=== PATIENT | male | born 1930 | race Hispanic/Latino ===

== ENCOUNTER 2018-05-13 15:21 | Observation (INO) | payer MEDICARE, OTHER ==
[2018-05-13 15:57] VITALS: BMI 23.0
--- NOTE | 2018-05-13 16:09 | ED PDOC ---
Arrival/HPI - General Time Seen by Provider: 05/13/18 15:28 Historian: Patient - History of Present Illness Narrative History of Present Illness (Text): 05/13/18 16:04 88-year-old male presents today sent in by Dr. Teryr for evaluation for "low blood count". [place]. Patient states apparently the [facility] has been trying to call him since yesterday to tell him about his blood test. Apparently the [facility] called Dr. Parada and Dr. Parada was able to get in contact with the patient and advised him to come to the emergency room for admission. Patient denies fevers or chills. Denies chest pain or shortness of breath. Denies dizziness or weakness. Denies nausea vomiting diarrhea constipation. He denies hematochezia or hematemesis or hematuria. Patient denies abdominal pain. No other complaints Past Medical History - Provider Review Nursing Documentation Reviewed: Yes - Travel History Have you recently traveled outside [place] w/in the past 3 mons?: No - Hematological/Oncological Hx Blood Transfusions: No - Musculoskeletal/Rheumatological Hx Musculoskeletal Disorders: No - Psychiatric Hx Physical Abuse: No Hx Substance Use: No - Anesthesia Hx Anesthesia Reactions: No Hx Malignant Hyperthermia: No - Suicidal Assessment Feels Threatened In Home Enviroment: No Family/Social History - Physician Review Nursing Documentation Reviewed: Yes Family/Social History: Unknown Family HX Smoking Status: Unknown If Ever Smoked Hx Alcohol Use: (OCCASIONAL BEER) Hx Substance Use: No Allergies/Home Meds Allergies/Adverse Reactions: Allergies No Known Allergies Allergy (Verified 12/30/12 11:06) Home Medications: Home Meds Medication Instructions Recorded Confirmed Cholecalciterol 2,000 units PO DAILY 05/13/18 05/13/18 Meclizine [Antivert] 25 mg PO 05/13/18 Mesalamine [Apriso] 375 mg PO DAILY 05/13/18 05/13/18 MetFORMIN [glucOPHAGE] 500 mg PO DAILY 05/13/18 05/13/18 Simvastatin [Zocor] 20 mg PO DAILY 05/13/18 05/13/18 Review of Systems - Review of Systems Constitutional: absent: Fatigue, Fevers Respiratory: absent: SOB, Cough Cardiovascular: absent: Chest Pain, Palpitations Gastrointestinal: absent: Abdominal Pain, Nausea, Vomiting Genitourinary Male: absent: Dysuria Musculoskeletal: absent: Arthralgias, Back Pain, Neck Pain Skin: absent: Rash, Pruritis Neurological: absent: Headache, Dizziness Psychiatric: absent: Anxiety, Depression, Suicidal Ideation Physical Exam Vital Signs Reviewed: Yes Vital Signs Temp Pulse Resp BP Pulse Ox 05/13/18 22:14 98.1 F 65 18 159/79 H 100 05/13/18 20:30 97.9 F 62 19 153/80 H 05/13/18 20:21 98.2 F 70 19 155/77 H 100 05/13/18 19:45 98.1 F 75 18 165/98 H 05/13/18 19:29 98 F 78 18 159/68 H 05/13/18 15:48 97.6 F 83 18 141/73 98 Temperature: Afebrile Blood Pressure: Normal Pulse: Regular Respiratory Rate: Normal Appearance: Positive for: Well-Appearing, Non-Toxic, Comfortable Pain Distress: None Mental Status: Positive for: Alert and Oriented X 3 - Systems Exam Head: Present: Atraumatic Pupils: Present: PERRL Extroacular Muscles: Present: EOMI Mouth: Present: Moist Mucous Membranes Neck: Present: Normal Range of Motion Respiratory/Chest: Present: Clear to Auscultation, Good Air Exchange. No: Respiratory Distress, Accessory Muscle Use Cardiovascular: Present: Regular Rate and Rhythm, Normal S1, S2. No: Murmurs Abdomen: No: Tenderness, Distention, Rebound, Guarding Rectal: Present: Occult Blood. No: Rectal Tenderness, Gross Blood, Melena, Hemorrhoids, Fissures, Nodule/Mass/Lesions Back: Present: Normal Inspection Upper Extremity: Present: Normal ROM Lower Extremity: Present: Normal ROM Neurological: Present: GCS=15, Speech Normal Skin: Present: Warm, Dry, Normal Color. No: Rashes Psychiatric: Present: Alert, Oriented x 3 Medical Decision Making ED Course and Treatment: 05/13/18 16:06 88yr old male presents today sent in by dr. Parada for low blood count. pt denies any complaints cbc hcg; 7.1 cmp: bun; 30 cr; 1.9 glucose; 140 INR: wnl trop wnl ekg; normal sinus rhythm at 78 bpm normal axis normal intervals no ST elevations cxr; wnl 05/13/18 17:46 pt is non toxic well appearing; denies any complaints. pt found to have HGB of 7.1; with brown heme positive stools. consent for blood transfusion obtained. case discussed with dr. reeves; wants only 1 unit PRBCS, consult dr. parada. impression; GI bleed, anemia admit to tele - Lab Interpretations Lab Results: 05/13/18 16:50 05/13/18 16:50 Lab Results 05/13/18 17:18: Blood Type O POSITIVE, Antibody Screen Negative, Crossmatch See Detail, BBK History Checked No verified bt 05/13/18 16:50: Urine Color Yellow, Urine Appearance Clear, Urine pH 6.0, Ur Specific [place] 1.020, Urine Protein Trace H, Urine Glucose (UA) Negative, Urine Ketones Negative, Urine Blood Negative, Urine Nitrate Negative, Urine Bilirubin Negative, Urine Urobilinogen 0.2, Ur Leukocyte Esterase Negative, Urine RBC 0 - 2, Urine WBC 1 - 3, Ur Epithelial Cells None, Urine Bacteria Few 05/13/18 16:50: PT 12.0, INR 1.05, APTT 30.0 05/13/18 16:50: WBC 6.4, RBC 2.83 L, Hgb 7.1 L, Hct 23.3 L, MCV 82.3 D, MCH 25.1, MCHC 30.5 L, RDW 16.1 H, Plt Count 193, MPV 8.8, Gran % 84.1 H, Lymph % ( Auto) 5.7 L, [place] % (Auto) 7.2 H, Eos % (Auto) 2.8, Baso % (Auto) 0.2, Gran # 5.34, Lymph # (Auto) 0.4 L, [place] # (Auto) 0.5, Eos # (Auto) 0.2, Baso # (Auto) 0.01 05/13/18 16:50: Sodium 140, Potassium 4.2, Chloride 107, Carbon Dioxide 25, Anion Gap 12, BUN 30 H, Creatinine 1.9 H, Est GFR ( Amer) 41, Est GFR ( Non-Af Amer) 34, Random Glucose 140 H, Calcium 8.3 L, Total Bilirubin 0.2, AST 20, ALT 20, Alkaline Phosphatase 176 H, Lactate Dehydrogenase 403, Total Creatine Kinase 76, Troponin I 0.01, Total Protein 6.8, Albumin 3.8, Globulin 3.0, Albumin/Globulin Ratio 1.3 - RAD Interpretation Radiology Orders: 05/13/18 15:58 CHEST PORTABLE [RAD] Stat - Medication Orders Current Medication Orders: Discontinued Medications Pantoprazole Sodium (Protonix Inj) 40 mg IVP STAT STA Stop: 05/13/18 17:38 Last Admin: 05/13/18 17:48 Dose: 40 mg IVP Administration Document 05/13/18 17:48 MAURICE (Rec: 05/13/18 17:48 MAURICE [id number]) Charges for Administration # of IVP Administrations 1 Disposition/Present on Arrival - Present on Arrival Any Indicators Present on Arrival: No History of DVT/PE: No History of Uncontrolled Diabetes: No Urinary Catheter: No History of Decub. Ulcer: No - Disposition Have Diagnosis and Disposition been Completed?: Yes Diagnosis: Anemia, GI bleed Disposition: HOSPITALIZED Disposition Time: 17:40 Patient Plan: Observation Patient Problems: Current Active Problems Problem Status Onset Anemia Acute GI bleed Acute Condition: FAIR
--- NOTE | 2018-05-13 16:54 | RAD ---
Date of service: 05/13/2018 HISTORY: anemia COMPARISON: No prior. FINDINGS: LUNGS: No active pulmonary disease. PLEURA: No significant pleural effusion identified, no pneumothorax apparent. CARDIOVASCULAR: Normal. OSSEOUS STRUCTURES: No significant abnormalities. VISUALIZED UPPER ABDOMEN: Normal. OTHER FINDINGS: None. IMPRESSION: No active disease.
[2018-05-13 17:16] LABS: BASO # 0.01 K/mm3 (0.0-2.0); BASO % 0.2 % (0.0-3.0); EOS # 0.2 (0.0-0.7); EOS % 2.8 % (1.5-5.0); GRAN # 5.34 (1.4-6.5); GRAN % 84.1 % (50.0-68.0); HEMOGLOBIN 7.1 g/dL (14.0-18.0); LYMPH # 0.4 (1.2-3.4); LYMPH % 5.7 % (22.0-35.0); MEAN CELL VOLUME 82.3 fl (80.0-105.0); MEAN CORPUSCULAR HEMOGLOBIN 25.1 pg (25.0-35.0); MEAN CORPUSCULAR HGB CONC 30.5 g/dl (31.0-37.0); MEAN PLATELET VOLUME 8.8 fl (7.0-11.0); MONO # 0.5 (0.1-0.6); MONO % 7.2 % (1.0-6.0); RBC 2.83 10^6/uL (3.5-6.1); RED CELL DISTRIBUTION WIDTH 16.1 % (11.5-14.5); WHITE BLOOD COUNT 6.4 10^3/ul (4.5-11.0)
[2018-05-13 17:19] LABS: ALB/GLOB RATIO 1.3 (1.1-1.8); ALBUMIN 3.8 g/dL (3.0-4.8); CALCIUM 8.3 mg/dL (8.4-10.5)
[2018-05-13 17:20] LABS: INR 1.05
[2018-05-13 17:22] LABS: URINE BILIRUBIN NEGATIVE (NEGATIVE); URINE BLOOD NEGATIVE (NEGATIVE); URINE GLUCOSE (UA) NEGATIVE (NEGATIVE); URINE LEUKOCYTE ESTERASE NEGATIVE Leu/uL (NEGATIVE); URINE PROTEIN TRACE mg/dL (<30 mg/dL); URINE UROBILINOGEN 0.2 E.U./dL (<1 E.U./dL)
[2018-05-13 17:24] LABS: URINE APPEARANCE CLEAR (CLEAR); URINE COLOR YELLOW (YELLOW)
[2018-05-13 17:30] LABS: TROPONIN I 0.01 ng/mL; URINE BACTERIA FEW (NEG); URINE RBC 0 - 2 /hpf (0-2)
[2018-05-14 08:35] LABS: HEMOGLOBIN 8.5 g/dL (14.0-18.0); MEAN CELL VOLUME 81.9 fl (80.0-105.0); MEAN CORPUSCULAR HEMOGLOBIN 25.2 pg (25.0-35.0); MEAN CORPUSCULAR HGB CONC 30.8 g/dl (31.0-37.0); MEAN PLATELET VOLUME 8.2 fl (7.0-11.0); RBC 3.37 10^6/uL (3.5-6.1); RED CELL DISTRIBUTION WIDTH 15.7 % (11.5-14.5); WHITE BLOOD COUNT 4.6 10^3/ul (4.5-11.0)
[2018-05-14] MEDS ORDERED: Etomidate 20 mg/10ml Inj IV ONE (08:54)
[2018-05-14] MEDS ORDERED: Propofol 10 mg/ml Inj (20 ML) ONE (08:54)
[2018-05-14 09:24] VITALS: O2SAT 97
[2018-05-14] MEDS ORDERED: Barium Sulfate Susp 2.1% w/v, 2.0% w/w 450 mL Bottle PO ONE (09:38)
[2018-05-14] MEDS: Sodium Chloride 0.9% 1,000 ML IV SCH (10:21)
--- NOTE | 2018-05-14 13:07 | CT ---
Date of service: 05/14/2018 PROCEDURE: CT Abdomen and Pelvis without intravenous contrast HISTORY: anemia COMPARISON: None. TECHNIQUE: Without contrast. Contrast dose: Radiation dose: Total exam DLP = 450 mGy-cm. This CT exam was performed using one or more of the following dose reduction techniques: Automated exposure control, adjustment of the mA and/or kV according to patient size, and/or use of iterative reconstruction technique. FINDINGS: LOWER THORAX: Unremarkable. LIVER: Unremarkable. No gross lesion or ductal dilatation. GALLBLADDER AND BILE DUCTS: Unremarkable. PANCREAS: Unremarkable. No gross lesion or ductal dilatation. SPLEEN: Unremarkable. ADRENALS: Unremarkable. No mass. KIDNEYS AND URETERS: Unremarkable. No hydronephrosis. No solid mass. VASCULATURE: There is an infrarenal abdominal aortic aneurysm measuring 6.5 cm in diameter. This extends to the bifurcation. BOWEL: There is mild mural thickening in the descending and sigmoid colon, possible colitis. There is also diverticulosis in the sigmoid colon APPENDIX: Unremarkable. Normal appendix. PERITONEUM: Unremarkable. No free fluid. No free air. LYMPH NODES: Unremarkable. No enlarged lymph nodes. BLADDER: Unremarkable. REPRODUCTIVE: There is mild enlargement of the prostate which measures 48 x 57 mm. BONES: Multilevel disc degeneration OTHER FINDINGS: None. IMPRESSION: Mild mural thickening in the descending and sigmoid colon, possible colitis 6.5 cm infrarenal abdominal aortic aneurysm
--- NOTE | 2018-05-14 17:42 | CARD ---
APPROVED REPORT Date of service: 05/13/2018 EKG Measurement Heart [id number] <Conclusion> Normal sinus rhythm Normal ECG
--- NOTE | 2018-05-14 18:04 | CON ---
DATE: 05/14/2018 GASTROENTEROLOGY CONSULTATION REQUESTING PHYSICIAN: Amari Allison MD REASON FOR CONSULTATION: I have been asked to see this 88-year-old male with a history of Crohn's colitis which has been quiescent for many years without any history of diarrhea or rectal bleeding recently, who has had a slowly decreasing blood count over the last 6 months. The patient had a CBC several months ago which revealed a hemoglobin of 8.8. This was down over 3.5 g over his baseline which is in the 12 g range over a year ago. At that time, he was offered upper endoscopy and he refusing that. He was 88 years old and he did not want to have the endoscopy done due to no symptoms of bleeding at that time. The patient had blood work 2 days ago at the [facility] and was found to be more anemic with a hemoglobin of 7.4 g. I called the patient and advised him to come to the hospital for blood transfusions and workup. Again, he denies any rectal bleeding or diarrhea. PAST MEDICAL HISTORY: Notable for diabetes mellitus, hypertension, vertigo, and Crohn's colitis. SOCIAL HISTORY: The patient is a former cigarette smoker, having quit many years ago. He consumes alcohol on a social basis. FAMILY HISTORY: Noncontributory. REVIEW OF SYSTEMS: A 14-point review of systems is notable for generalized weakness. He denies chest pain, palpitations or shortness of breath. MEDICATIONS AT HOME: Include Apriso 375 mg three times a day, metformin 500 mg daily, Zocor, meclizine and colecalciferol. PHYSICAL EXAMINATION: GENERAL: Elderly male in no distress. VITAL SIGNS: Reveal temperature of 98, blood pressure 130/73, heart rate 65. HEENT: Reveal sclerae to be white. Conjunctivae pink. NECK: Supple. CHEST: Lungs are clear. HEART: Reveals regular rate and rhythm. ABDOMEN: Soft, nontender. EXTREMITIES: Show no edema. LABORATORY DATA: Reveal hemoglobin of 7.1, MCV of 82.3, platelet count 193,000, white blood cell count 6.4. Coags are normal. Chemistries reveal BUN 30, creatinine 1.9, blood sugar of 140. AST, ALT are normal. Alkaline phosphatase is 176. IMPRESSION: An 88-year-old male with quiescent Crohn's colitis, admitted to the hospital with anemia. The patient's colitis is quiescent without any history of diarrhea or rectal bleeding. His blood count has been noted to be slowly decreasing over several months. He has refused upper endoscopy in the past. He did have a colonoscopy several years ago which showed mildly active sigmoid colitis. RECOMMENDATIONS: 1. We will transfuse packed red blood cells to hematocrit of 30%. 2. We will schedule the patient for an upper endoscopy for this morning. Gil Chow MD
--- NOTE | 2018-05-14 22:05 | HP ---
HISTORY OF PRESENT ILLNESS: The patient is an 88-year-old male who was sent in to the emergency room by Dr. Chow for evaluation of a low blood count. [facility]. [facility]. Dr. Chow was able to keep in touch with the patient and he presented to the emergency room. The patient denies any nausea, vomiting, diarrhea, constipation, hematemesis, hematuria. He has no complaints whatsoever. FAMILY HISTORY: Noncontributory. ALLERGIES: NONE. PAST MEDICAL HISTORY: He has a past medical history of Crohn's disease which apparently has been stable. PHYSICAL EXAMINATION: VITAL SIGNS: Temperature of 98, pulse rate of 65, blood pressure of 140/70, respiratory rate of 18 with an O2 saturation of 97% on nasal cannula. HEENT: Unremarkable. NECK: Supple. There is a full range of motion. LUNGS: Clear to auscultation and percussion bilaterally. HEART: Regular rate and rhythm ABDOMEN: Benign. There is no pain on palpation. There is no organomegaly. EXTREMITIES: Show no deformities or edema. NEUROLOGICAL: Show no focal deficits. LABORATORY DATA: CBC shows a hemoglobin of 8.5 with a hematocrit of 27.6. Chemistry: BUN of 30, creatinine of 1.9, random glucose of 140. Of note this is a nonfasting. The patient was scoped this morning. No signs of bleeding were found. Patient will be retransfused a unit of blood and we will follow his CBCs. ADMISSION DIAGNOSES: 1. Anemia, iron deficient. 2. Crohn's disease. Lincoln Allison MD
[2018-05-15] MEDS: Sodium Chloride 0.9% 1,000 ML IV SCH (00:44)
[2018-05-15 00:49] VITALS: RESP 20
[2018-05-15 06:10] VITALS: BP 128/75; PULSE 65; TEMP 97.7
[2018-05-15 08:17] LABS: HEMOGLOBIN 9.7 g/dL (14.0-18.0); MEAN CELL VOLUME 82.8 fl (80.0-105.0); MEAN CORPUSCULAR HEMOGLOBIN 25.7 pg (25.0-35.0); MEAN PLATELET VOLUME 8.6 fl (7.0-11.0); RBC 3.78 10^6/uL (3.5-6.1); RED CELL DISTRIBUTION WIDTH 15.9 % (11.5-14.5); WHITE BLOOD COUNT 5.7 10^3/ul (4.5-11.0)
[2018-05-15 08:28] LABS: ALB/GLOB RATIO 1.2 (1.1-1.8); CALCIUM 8.3 mg/dL (8.4-10.5)
--- NOTE | 2018-05-15 09:00 | PN ---
SUBJECTIVE: The patient was seen and examined at bedside on the telemetry steiner. No acute events overnight. He remains afebrile, hemodynamically stable and is doing well s/p EGD. This morning he feels well, offers no complaints and is eager for discharge to home. OBJECTIVE: VITAL SIGNS: Temperature 97.7, pulse 65, blood pressure 128/75, respiratory rate 20, oxygen saturation 97% on room air. GENERAL: No apparent distress. HEENT: PERRL, EOMI. No scleral icterus. Mild conjunctival pallor is noted. No JVD. LUNGS: Clear to auscultation. CARDIOVASCULAR: Regular rate and rhythm. Normal S1 and S2. ABDOMEN: Normoactive bowel sounds. Soft, nontender and nondistended. EXTREMITIES: No edema. NEUROLOGIC: Awake, alert and oriented x 3. No focal motor deficits. LABORATORY DATA: Morning labs are pending. ASSESSMENT: The patient is an 88-year-old man with a past medical history of Crohn disease, hyperlipidemia and type 2 diabetes mellitus who presented for evaluation of progressively worsening anemia (based on outpatient labs) who is now s/p EGD which demonstrated nonerosive esophagitis but no evidence of active bleed. PLAN: 1. Normocytic anemia. EGD reviewed and no evidence of active bleed. The patient is s/p transfusion of 2 units of PRBCs with an appropriate response in hemoglobin. A repeat CBC is pending this morning to assess for stability of hemoglobin. 2. Crohn's disease. Input from Dr. Chow noted and greatly appreciated. The patient remains on Mesalamine. 3. Hyperlipidemia. The patient to resume Simvastatin 20 mg p.o. daily upon discharge. 4. Type 2 diabetes mellitus. The patient to resume Metformin 500 mg p.o. daily upon discharge. 5. Prophylaxis. GI prophylaxis is not indicated as the patient is eating. DVT prophylaxis is not indicated as the patient is ambulatory. CODE STATUS: Full code. Amari Allison MD MTDD
--- NOTE | 2018-05-17 14:16 | DS ---
ADMISSION DIAGNOSIS: Symptomatic iron-deficiency anemia secondary to Crohn disease. DISCHARGE DIAGNOSIS: Iron-deficiency anemia and Crohn disease. SECONDARY DIAGNOSES: Hyperlipidemia and type 2 diabetes mellitus. CONSULTATIONS: Dr. Chow (Gastroenterology) IMAGING STUDIES: 1. Chest x-ray demonstrated no acute pathology. 2. CT of the abdomen and pelvis with p.o. contrast demonstrated mild mural thickening in the descending and sigmoid colon suggestive of colitis PROCEDURES: EGD demonstrated nonerosive esophagitis and atrophic gastritis, but no evidence of active bleed. HISTORY OF PRESENT ILLNESS: The patient is an 88-year-old man with a past medical history of Crohn disease, type 2 diabetes mellitus and hyperlipidemia who was sent to ED by his typecasting machine operator (Dr. Chow) for evaluation of progressively worsening anemia as noted on outpatient labs. The patient has a history of Crohn disease and has been in remission on Mesalamine and is followed closely by Dr. Chow. Over the past several months he was noted to have a progressively worsening anemia on outpatient laboratory studies and, as such, was advised to present to the ED for blood transfusion and GI evaluation to rule out GI bleed. On arrival to the ED, he was found to be afebrile and hemodynamically stable and laboratory studies confirmed anemia with a hemoglobin of 7.1. The patient was typed and crossmatched for 2 units of PRBCs and was subsequently admitted to the telemetry steiner for continued workup of symptomatic anemia. HOSPITAL COURSE: Upon admission to the telemetry steiner, the patient was evaluated by Dr. Chow. He was scheduled for an EGD the following day. He was also transfused 2 units of PRBCs with an appropriate response in hemoglobin and no overt bleeding was noted during his hospital stay. The patient underwent successful EGD with the findings as described above and given his hemodynamic stability and no evidence of active bleed, the patient was cleared for discharge to home. CONDITION: Fair, improved. DISPOSITION: Home. DISCHARGE MEDICATIONS: Simvastatin 20 mg p.o. daily, Mesalamine 375 mg p.o. daily, Metformin 500 mg p.o. daily and meclizine 25 mg p.o. every 8 hours p.r.n. vertigo. DISCHARGE INSTRUCTIONS: The patient was advised to adhere to post EGD instructions as per Dr. Chow. He was also advised that if he has any recurrence of the symptoms or any development of severe abdominal pain, nausea, vomiting, diarrhea or blood per rectum, to present to his PMD or to the nearest ED immediately. FOLLOWUP: The patient to follow up with his PMD within one week of discharge. The patient to follow up with Dr. Chow as scheduled. Amari Allison MD MTDD
== END 2018-05-15 10:38 | disposition home or self-care (01) ==
LOC: ED 15:21 → ERH 17:53 → 2RSO 22:36
PROVIDERS: ADMIT Student in an Organized Health Care Education/Training Program; ATTEND Student in an Organized Health Care Education/Training Program
DX: D50.9 Iron deficiency anemia, unspecified (principal); K50.10 Crohn's disease of large intestine without complications; I10 Essential (primary) hypertension; E11.9 Type 2 diabetes mellitus without complications; E78.5 Hyperlipidemia, unspecified; Z79.84 Long term (current) use of oral hypoglycemic drugs; Z87.891 Personal history of nicotine dependence; K20.9 Esophagitis, unspecified; K29.40 Chronic atrophic gastritis without bleeding; B96.81 Helicobacter pylori [H. pylori] as the cause of diseases classified elsewhere; R40.2412 Glasgow coma scale score 13-15, at arrival to emergency department
CPT/HCPCS: 36415; 36430; 43239; 71045; 74176; 80053; 81001; 82550; 82948; 83615; 84484; 85025; 85027; 85610; 85730; 86850; 86900; 86920; 88305; 88312; 88342; 93005; 96374; 99285; C9113; G0378; J2001; J2704; J7030; J7040; P9016

== ENCOUNTER 2018-07-21 06:19 | Day surgery (SDC) | payer MEDICARE, OTHER ==
[2018-07-21] MEDS ORDERED: Propofol 10 mg/ml Inj (20 ML) ONE (08:06)
[2018-07-21] MEDS ORDERED: Lidocaine 1% Inj (20ml) ONE (08:07)
[2018-07-21] MEDS ORDERED: Sodium Chloride 0.9% 1,000 ML IV SCH (08:45)
[2018-07-21 08:50] VITALS: O2SAT 99
[2018-07-21 09:35] VITALS: BP 151/71; PULSE 71; RESP 16; TEMP 97.7
== END 2018-07-21 08:57 | disposition home or self-care (01) ==
LOC: ENDO 06:19
PROVIDERS: ATTEND Specialist
DX: Z12.11 Encounter for screening for malignant neoplasm of colon (principal); D50.9 Iron deficiency anemia, unspecified; K57.30 Diverticulosis of large intestine without perforation or abscess without bleeding; K64.8 Other hemorrhoids; K50.90 Crohn's disease, unspecified, without complications; Z98.49 Cataract extraction status, unspecified eye